=== PATIENT | female | born 1960 | race Caucasian/White ===

== ENCOUNTER 2023-06-20 13:19 | Inpatient (IN) | payer OTHER ==
[~2023-06-20] VITALS: Ht 162.6 cm; Wt 58.1 kg
[~2023-06-20 13:19] MED LIST: Flagyl500 MG PO
[2023-06-20] MEDS ORDERED: [UNRECOGNIZED DRUG - CODE] PO (16:52)
[2023-06-20] MEDS ORDERED: INDAPAMIDE PO (16:52)
[2023-06-20] MEDS ORDERED: PANTOPRAZOLE SO40 M2 PO (16:52)
[2023-06-20] MEDS ORDERED: LAMOTRIGINE200 MG PO (16:52)
[2023-06-20] MEDS ORDERED: FLUT.05NI (16:52)
[2023-06-20] MEDS ORDERED: KLONOPIN0.5 M9 PO ×2 (16:52)
[2023-06-20 19:18] LABS: Hematocrit 31.8 % (33.0-51.0); Hemoglobin 11.6 g/dL (11.5-16.0); Mean Corpuscular HGB 32.6 pg (26.0-34.0); Mean Corpuscular HGB Conc 36.5 g/dL (31.5-36.5); Mean Corpuscular Volume 89 fL (80-100); Mean Platelet Volume 9.1 fL (9.1-12.4); Platelet Count 295 K/mm3 (150-400); RDW Coefficient Variation 11.1 % (11.7-14.2); RDW Standard Deviation 36.5 fL (35.1-46.3); Red Blood Cell Count 3.56 M/mm3 (3.80-5.20)
[2023-06-20 19:28] LABS: Bun/Creatinine Ratio 10.4 (12.0-20.0); Calcium, Blood 9.4 mg/dL (8.5-10.1); Creatinine, Blood 0.86 mg/dL (0.40-1.00); Potassium, Blood 3.9 mmol/L (3.5-5.5)
[2023-06-20 21:25] VITALS: BP 156/88
[2023-06-20 23:29] LABS: Source, Urine Foley catheter
[2023-06-20 23:31] LABS: Bilirubin, Urine Neg (Neg); Blood, Urine Neg (Neg); Glucose Qualitative, Urine Neg (Neg); Ketones, Urine Neg (Neg); Leukocyte Esterase, Urine 1+ (Neg); Nitrite, Urine Neg (Neg); Protein, Urine Neg (Neg); Urobilinogen, Urine NORM (Normal); pH, Urine 6.5 (5.0-8.0)
[2023-06-20 23:56] LABS: Appearance, Urine Clear (Clear); Color, Urine Yellow (P-Yellow)
[2023-06-20 23:57] LABS: Bacteria Many /hpf; Red Blood Cells, Urine Not Seen /hpf (0-2); Squamous Epithelial Cells Not Seen /hpf (Few)
[2023-06-21] VITALS (16 sets, daily range): BP systolic 126–172; BP diastolic 74–94
--- NOTE | 2023-06-21 04:22 | NUR ---
SHIFT SUMMARY NEW ER ADMIT WITH LEFT HIP FX. SURGICAL CONSULT CALLED TO ANSWERING SERVICE. PT NPO SINCE MIDNIGHT WITH IVF INFUSING PER ORDERS. TRAMADOL AND REPOSITIONING FOR PAIN MANAGEMENT. HAIDER IN PLACE AND PATENT. VSS. USES CALL LIGHT APPROPRIATELY.
--- NOTE | 2023-06-21 18:17 | NUR ---
SHIFT SUMMARY PT A&OX4, VSS/RA, BERNARDINO PO, HAIDER PATENT & DRAINING YELLOW URINE/STAT LOCK ON OFF FLOOR, PAIN MANAGED WITH ULTRAM/TYLENOL/TORADOL, BEDREST/NOT OOB YET, IV SL/ABX PER EMAR. S/P L HIP PINNING, GAUZE/TEGADERM CDI, TTWB. BOWEL CARE PROVIDED. WILL REPORT TO ONCOMING MP SHERIDAN.
[2023-06-22 00:21] VITALS: BP 156/92
[2023-06-22 03:52] LABS: BASOPHILS ABSOLUTE AUTO 0.01 K/mm3 (0.00-0.23); BASOPHILS PERCENT AUTO 0 % (0-2); EOSINOPHILS PERCENT AUTO 0 % (0-6); Hematocrit 28.9 % (33.0-51.0); Hemoglobin 10.7 g/dL (11.5-16.0); IMMATURE GRAN ABSOLUTE AUTO 0.02 K/mm3 (0.00-0.10); IMMATURE GRAN PERCENT AUTO 0 % (0-1); LYMPHOCYTES ABSOLUTE AUTO 0.62 K/mm3 (0.84-5.20); LYMPHOCYTES PERCENT AUTO 8 % (21-46); MONOCYTES ABSOLUTE AUTO 0.63 K/mm3 (0.16-1.47); MONOCYTES PERCENT AUTO 8 % (4-13); Mean Corpuscular HGB 32.9 pg (26.0-34.0); Mean Corpuscular Volume 89 fL (80-100); Mean Platelet Volume 9.1 fL (9.1-12.4); NEUTROPHILS ABSOLUTE AUTO 6.75 K/mm3 (1.96-9.15); NEUTROPHILS PERCENT AUTO 84 % (41-73); Platelet Count 224 K/mm3 (150-400); RDW Coefficient Variation 11.1 % (11.7-14.2); RDW Standard Deviation 36.3 fL (35.1-46.3); Red Blood Cell Count 3.25 M/mm3 (3.80-5.20); White Blood Cell Count 8.03 K/mm3 (4.00-11.30)
[2023-06-22 04:23] LABS: Bun/Creatinine Ratio 16.4 (12.0-20.0); Calcium, Blood 8.4 mg/dL (8.5-10.1); Creatinine, Blood 0.86 mg/dL (0.40-1.00); Potassium, Blood 4.1 mmol/L (3.5-5.5)
[2023-06-22 05:38] VITALS: BP 146/93
--- NOTE | 2023-06-22 07:29 | NUR ---
SHIFT SUMMARY PT HAS RESTED T/O THE NIGHT, POD 0 LEFT HIP PINNING. PT HAS NOT COMPLAINED OF PAIN T/O THE NIGHT. TOLERAING PO INTAKE. DRESSING C/D/I. POST OP VITALS STABLE. PLAN IS FOR PT/OT EVAL. BOWEL CARE FOR CONSTIPATION, NO BOWEL MOVEMENT YET. PT SLEEPS MOST OF THE NIGHT AND DENIES NEEDS WHEN ASKED. BED IN LOWEST POSITION, CALL LIGHT WITHIN REACH.
[2023-06-22 07:38] VITALS: BP 150/93
[2023-06-22 15:16] VITALS: BP 129/79
--- NOTE | 2023-06-22 17:20 | NUR ---
SHIFT SUMMARY PT A&OX4, VSS/RA, BERNARDINO PO, VOIDING, AMB FWW GB TTWB 1 PP MIN ASSIST, PAIN MANAGED WITH TYLENOL AND TORADOL, POD1 L HIP PINNING, GAUZE/TEGADERM CDI. WILL REPORT TO ONCOMING NOC RN.
--- NOTE | 2023-06-22 17:46 | NUR ---
AQUACEL DRESSING APPLIED NOW
[2023-06-22 20:01] VITALS: BP 150/94
[2023-06-22 20:03] VITALS: BP 146/89
[2023-06-23 03:50] VITALS: BP 66/58
[2023-06-23 03:51] VITALS: BP 74/60
[2023-06-23 03:58] VITALS: BP 124/82
--- NOTE | 2023-06-23 04:18 | NUR ---
BP: PUBLIC HEALTH SERVICE OFFICER CALLED THIS RN INTO ROOM. PT SITTING AT SIDE OF BED, WEAK, DROWSY, BP HYPO (SEE VITALS DOCUMENTATION). PT HAD INCONTINENT BM. PT ASSISTED TO LYING POSITION, 4LO2 NC PLACED. PT MORE RESPONSIVE WHEN LYING, VITALS IMPROVING. MD CALLED, UPDATED ON PT CONDITION AND VITALS. NEW ORDER FOR 500 ML NS BOLUS, REPEAT VITALS IN 1 HR AND CALL MD IF NO IMPROVEMENT. WILL NOTIFY PRIMARY RN.
[2023-06-23 04:34] VITALS: BP 123/80
[2023-06-23 07:30] VITALS: BP 114/82
--- NOTE | 2023-06-23 07:43 | NUR ---
summary pt vss with no further episodes.received iv bolus.
--- NOTE | 2023-06-23 10:32 | NUR ---
PT REFUSED ALL STOOL SOFTNERS AND MIRALAX DUE TO MULTIPLE BM THROUGH NOC SHIFT.
[2023-06-23] MEDS ORDERED: ACET325 PO (13:26)
[2023-06-23] MEDS ORDERED: HYDACE10B PO (13:27)
[2023-06-23] MEDS ORDERED: DOCU100 PO (13:27)
[2023-06-23] MEDS ORDERED: SENN187 PO (13:28)
--- NOTE | 2023-06-23 14:04 | NUR ---
DISCHARGE PT DISCHARGED HOME FROM UNIT AT APROX 1405. PT AND BOYFRIEND GIVEN WRITTEN AND VERBAL DC INSTRUCTIONS AND VERBALIZED UNDERSTANDING. IV REMOVED. WRITTEN RX FOR PAIN MEDICATION GIVEN TO PT, COPY IN CHART.
== END 2023-06-23 14:00 | disposition home or self-care (01) | DRG 482 ==
LOC: ER 13:19 → SURS 18:48
PROVIDERS: Internal Medicine; Nurse Practitioner Acute Care; Orthopaedic Surgery; ADMIT Student in an Organized Health Care Education/Training Program
PROC: 0QH Lower Bones, Insertion (ICD-10-PCS; principal; 2023-06-21 13:00)
DX: S72.002A Fracture of unspecified part of neck of left femur, initial encounter for closed fracture (principal); W01.0XXA Fall on same level from slipping, tripping and stumbling without subsequent striking against object, initial encounter; I10 Essential (primary) hypertension; F31.9 Bipolar disorder, unspecified; F41.9 Anxiety disorder, unspecified; K21.9 Gastro-esophageal reflux disease without esophagitis; Z79.899 Other long term (current) drug therapy
CPT/HCPCS: 36415; 73502; 73552; 73590; 80048; 81001; 85025; 85027; 93005; 93010; 94762; 96374; 97110; 97116; 97161; 99285-25; A9270; C1713; C1769; J0690; J1100; J1650; J1885; J2405; J2704; J2765; J3010; J7030; J7040; J7120

== ENCOUNTER 2023-10-23 05:27 | Emergency (ER) | payer OTHER ==
[~2023-10-23] VITALS: Ht 162.6 cm; Wt 59.0 kg
[~2023-10-23 05:27] MED LIST changes: +ACET325 PO; +DOCU100 PO; +FLUT.05NI; +HYDACE10B PO; +INDAPAMIDE PO; +KLONOPIN0.5 M9 PO; +LAMOTRIGINE200 MG PO; +PANTOPRAZOLE SO40 M2 PO; +SENN187 PO; +[UNRECOGNIZED DRUG - CODE] PO
[2023-10-23 05:40] LABS: BASOPHILS ABSOLUTE AUTO 0.03 K/mm3 (0.00-0.23); BASOPHILS PERCENT AUTO 1 % (0-2); EOSINOPHILS ABSOLUTE AUTO 0.06 K/mm3 (0.00-0.68); EOSINOPHILS PERCENT AUTO 1 % (0-6); Hematocrit 29.6 % (33.0-51.0); Hemoglobin 10.8 g/dL (11.5-16.0); IMMATURE GRAN PERCENT AUTO 0 % (0-1); LYMPHOCYTES ABSOLUTE AUTO 2.77 K/mm3 (0.84-5.20); LYMPHOCYTES PERCENT AUTO 60 % (21-46); MONOCYTES PERCENT AUTO 9 % (4-13); Mean Corpuscular HGB 32.6 pg (26.0-34.0); Mean Corpuscular HGB Conc 36.5 g/dL (31.5-36.5); Mean Corpuscular Volume 89 fL (80-100); NEUTROPHILS ABSOLUTE AUTO 1.35 K/mm3 (1.96-9.15); NEUTROPHILS PERCENT AUTO 29 % (41-73); Platelet Count 250 K/mm3 (150-400); RDW Coefficient Variation 10.9 % (11.7-14.2); RDW Standard Deviation 35.7 fL (35.1-46.3); Red Blood Cell Count 3.31 M/mm3 (3.80-5.20); White Blood Cell Count 4.61 K/mm3 (4.00-11.30)
[2023-10-23 06:04] LABS: Albumin, Blood 3.1 g/dL (3.4-5.0); Albumin/Globulin Ratio 1.2 (0.8-1.8); Bilirubin, Total 0.5 mg/dL (0.1-1.0); Bun/Creatinine Ratio 9.7 (12.0-20.0); Calcium, Blood 8.1 mg/dL (8.5-10.1); Creatinine, Blood 0.93 mg/dL (0.40-1.00); Globulin, Blood 2.5 g/dL (2.2-4.0); Potassium, Blood 3.2 mmol/L (3.5-5.5); Total Protein, Blood 5.6 g/dL (6.4-8.2)
[2023-10-23 06:45] LABS: Source, Urine Straight Cath
[2023-10-23 06:51] LABS: Appearance, Urine Hazy (Clear); Bilirubin, Urine Neg (Neg); Blood, Urine Neg (Neg); Color, Urine Yellow (P-Yellow); Glucose Qualitative, Urine Neg (Neg); Ketones, Urine Neg (Neg); Leukocyte Esterase, Urine 1+ (Neg); Nitrite, Urine Pos (Neg); Protein, Urine Neg (Neg); Specific Gravity, Urine 1.015 (1.003-1.022); Urobilinogen, Urine NORM (Normal)
[2023-10-23 07:00] LABS: Amorphous Light (0-Heavy); Bacteria Mod /hpf; Red Blood Cells, Urine 0-2 /hpf (0-2); Squamous Epithelial Cells Not Seen /hpf (Few)
[2023-10-23] MEDS ORDERED: CEPH500 PO (07:18)
[2023-10-23 07:41] VITALS: BP 132/76
== END 2023-10-23 07:45 | disposition home or self-care (01) ==
LOC: ER 05:27
PROVIDERS: Emergency Medicine
DX: N39.0 Urinary tract infection, site not specified (principal); E86.0 Dehydration; I10 Essential (primary) hypertension; F31.9 Bipolar disorder, unspecified; Z79.51 Long term (current) use of inhaled steroids; Z79.899 Other long term (current) drug therapy; Z88.0 Allergy status to penicillin
CPT/HCPCS: 51701; 71045; 80053; 81001; 83605; 85025; 87077; 87086; 87186; 93005; 93010; 96360; 99285-25; A9270; J7030